=== PATIENT | female | born 1955 | race Caucasian/White ===

== ENCOUNTER 2018-02-11 16:13 | Inpatient (IN) ==
[2018-02-11] MEDS ORDERED: SODIUM POLYSTYRENE SULFATE 15 GM/60 ML BOTTLE PO ONE (18:00)
[2018-02-11] MEDS: INSULIN REGULAR IV SCH (18:31)
[2018-02-11] MEDS: DEXTROSE IV SCH (18:31)
[2018-02-11] MEDS: SODIUM BICARB IV SCH (18:31)
[2018-02-11] MEDS: [UNRECOGNIZED DRUG - OTHER] IV SCH (18:31)
[2018-02-11] MEDS ORDERED: PROCHLORPERAZINE 10 MG TABLET PO PRN (19:28)
[2018-02-11] MEDS: DOCUSATE SODIUM 100 MG CAPSULE PO SCH (21:20)
[2018-02-11] MEDS: PANTOPRAZOLE 40 MG TABLET PO SCH (21:21)
[2018-02-11] MEDS ORDERED: SODIUM CHLORIDE 0.9% 1,000 ML IV ONE (21:30)
[2018-02-11] MEDS ORDERED: ONDANSETRON 4 MG/2 ML VIAL IV PRN (22:59)
[2018-02-11] MEDS ORDERED: guaiFENesin 200 MG/10 ML UDCUP PO PRN (22:59)
[2018-02-11] MEDS ORDERED: BENZTROPINE 2 MG/2 ML AMP IV PRN (22:59)
[2018-02-11] MEDS ORDERED: traMADol 50 MG TABLET PO PRN (22:59)
[2018-02-11] MEDS ORDERED: diphenhydrAMINE CAP 25 MG CAPSULE PO PRN (22:59)
[2018-02-11] MEDS ORDERED: TEMAZEPAM 7.5 MG CAPSULE PO PRN (22:59)
[2018-02-11] MEDS ORDERED: chlorproMAZINE 25 MG TABLET PO PRN (22:59)
[2018-02-11] MEDS ORDERED: ACETAMINOPHEN 325 MG TABLET PO PRN (22:59)
[2018-02-11] MEDS ORDERED: MYLANTA/LIDO VISC 2:1 300 ML BOTTLE SWISH/SWAL PRN (22:59)
[2018-02-11] MEDS ORDERED: LACTULOSE 20 GM/30 ML UDCUP PO PRN (22:59)
[2018-02-11] MEDS ORDERED: MYLANTA/LIDO VISC 2:1 300 ML BOTTLE SWISH/SPIT PRN (22:59)
[2018-02-11] MEDS ORDERED: ALUMINUM/MAGNES/SIMETH MAX STR 30 ML UDCUP PO PRN (22:59)
[2018-02-11] MEDS ORDERED: ALPRAZolam 0.25 MG TABLET PO PRN (22:59)
[2018-02-11] MEDS ORDERED: chlorproMAZINE INJ 50 MG in SODIUM CHLORIDE 0.9% 100 ML IV PRN (22:59)
[2018-02-11] MEDS ORDERED: PROMETHAZINE INJ 25 MG in SODIUM CHLORIDE 0.9% 50 ML IV PRN (22:59)
[2018-02-11] MEDS ORDERED: LOPERAMIDE 2 MG CAPSULE PO PRN ×2 (22:59)
[2018-02-11] MEDS ORDERED: chlorproMAZINE INJ 25 MG in SODIUM CHLORIDE 0.9% 100 ML IV PRN (22:59)
[2018-02-11] MEDS ORDERED: MAGNESIUM HYDROXIDE SUSP 30 ML UDCUP PO PRN (22:59)
[2018-02-12] MEDS: DEXTROSE IV SCH ×2 (01:01→01:02)
[2018-02-12] MEDS: [UNRECOGNIZED DRUG - OTHER] IV SCH ×2 (01:01→01:02)
[2018-02-12] MEDS: SODIUM BICARB IV SCH ×2 (01:01→01:02)
[2018-02-12] MEDS: INSULIN REGULAR IV SCH ×2 (01:01→01:02)
[2018-02-12] MEDS: SODIUM CHLORIDE 0.9% 1,000 ML IV SCH ×2 (03:06→20:41)
[2018-02-12 05:32] LABS: Basophils # 0.1 10*3/uL (0.0-0.2); Basophils % 0.4 % (0.0-0.8); Eosinophils # 0.6 10*3/uL (0.0-0.87); Eosinophils % 3.4 % (0.00-10.9); Hematocrit 27.1 VOL% (35.7-47.0); Hemoglobin 8.4 GM/DL (12.0-16.0); Immature Granulocytes % 6.3 %; Immature Granulocytes Absolute 1.06 #; Lymphocytes # 1.3 10*3/uL (1.4-4.0); Lymphocytes % 7.7 % (21.3-54.2); Mean Corpuscular Hemoglobin 29 PG (27-34); Mean Corpuscular Volume 94.4 FL (87-102); Mean Platelet Volume 10.6 FL (9.6-12.0); Monocytes # 1.7 10*3/uL (0.11-0.8); Monocytes % 9.9 % (1.7-12.7); Neutrophils # 12.1 10*3/uL (1.4-7.4); Neutrophils % 72.3 % (38.7-73.9); Platelet Count 411 T/CUMM (130-400); Red Blood Count 2.87 MC/CUMM (3.8-5.5); Red Cell Distribution Width 19.5 % (9.3-17.3); White Blood Count 16.7 T/CUMM (4-12)
[2018-02-12 06:01] LABS: Band Neutrophils 2 % (0-10); Eosinophils 5 % (0-10); Hypochromasia 1+; Lymphocytes 4 % (20-55); Metamyelocytes 2 %; Microcytosis 1+; Segmented Neutrophils 82 % (50-85); Total Cells Counted 100
[2018-02-12 06:02] LABS: Platelet Estimate Increased
[2018-02-12 06:10] LABS: Albumin 1.8 G/DL (3.4-5.0); Bilirubin,Total 0.6 MG/DL (0.2-1.0); Calcium 7.9 MG/DL (8.5-10.1); Potassium 5.5 MMOL/L (3.5-5.1); Total Protein 5.2 G/DL (6.4-8.3)
[2018-02-12] MEDS: LEVOTHYROXINE 50 MCG TABLET PO SCH (06:17)
[2018-02-12] MEDS: DOCUSATE SODIUM 100 MG CAPSULE PO SCH ×2 (10:25→20:41)
[2018-02-12] MEDS: MULTIVITAMIN (CENTRUM) TABLET PO SCH (10:25)
[2018-02-12] MEDS: PANTOPRAZOLE 40 MG TABLET PO SCH ×2 (10:25→20:41)
[2018-02-12 19:47] LABS: Apearance,Urine CLOUDY (Clear); Bacteria,Urine Many /HPF (Few); Bilirubin,Urine Negative (Negative); Blood, Urine Small mg/dL (Negative); Glucose,Urine (UA) Negative (Negative); Ketones,Urine 5 mg/dL (Negative); Nitrite,Urine Negative (Negative); Protein,Urine 30 MG/DL; RBC,Urine 17 /HPF (0-4); Squamous Epithelial Cell,Urine Occasional /HPF (0-10); Urine Color Yellow (Yellow); Urine Specific Gravity 1.011 (1.001-1.035); Urine Urobilinogen < 2.0 EU/DL (0.2-1.0); WBC,Urine 339 /HPF (0-6)
[2018-02-12] MEDS ORDERED: ENOXAPARIN 60 MG/0.6 ML SYRINGE SUBCUT SCH (21:00)
[2018-02-13 04:33] LABS: Basophils # 0.2 10*3/uL (0.0-0.2); Basophils % 0.7 % (0.0-0.8); Eosinophils # 0.6 10*3/uL (0.0-0.87); Hemoglobin 9.5 GM/DL (12.0-16.0); Immature Granulocytes % 5.7 %; Lymphocytes # 1.4 10*3/uL (1.4-4.0); Lymphocytes % 6.8 % (21.3-54.2); Mean Corpuscular HGB Conc 30.6 GM/DL (32-36); Mean Corpuscular Hemoglobin 29 PG (27-34); Mean Corpuscular Volume 95.7 FL (87-102); Mean Platelet Volume 10.1 FL (9.6-12.0); Monocytes # 2.1 10*3/uL (0.11-0.8); Monocytes % 9.8 % (1.7-12.7); Neutrophils # 15.5 10*3/uL (1.4-7.4); Platelet Count 502 T/CUMM (130-400); Red Blood Count 3.24 MC/CUMM (3.8-5.5)
[2018-02-13 05:00] LABS: Band Neutrophils 4 % (0-10); Eosinophils 5 % (0-10); Hypochromasia 1+; Lymphocytes 6 % (20-55); Nucleated Red Blood Cells 1 (0-5); Ovalocytes Slight; Platelet Estimate Increased; Segmented Neutrophils 76 % (50-85); Total Cells Counted 100
[2018-02-13 05:01] LABS: Microcytosis 1+
[2018-02-13 05:02] LABS: Calcium 8.2 MG/DL (8.5-10.1); Osmolality,Calculated 285.7 MOS/KG (273-304)
[2018-02-13 05:18] LABS: Potassium 6.2 MMOL/L (3.5-5.1)
[2018-02-13] MEDS ORDERED: INSULIN REGULAR IV SCH (06:00)
[2018-02-13] MEDS ORDERED: SODIUM BICARB IV SCH (06:00)
[2018-02-13] MEDS ORDERED: [UNRECOGNIZED DRUG - OTHER] IV SCH (06:00)
[2018-02-13] MEDS ORDERED: DEXTROSE IV SCH (06:00)
[2018-02-13] MEDS ORDERED: LEVOFLOXACIN 500 MG TABLET PO ONE (06:30)
[2018-02-13] MEDS: LEVOTHYROXINE 50 MCG TABLET PO SCH (06:34)
[2018-02-13] MEDS: SODIUM CHLORIDE 0.9% 1,000 ML IV SCH (06:35)
[2018-02-13 07:29] VITALS: BP 147/77
[2018-02-13] MEDS: MULTIVITAMIN (CENTRUM) TABLET PO SCH (08:23)
[2018-02-13] MEDS: DOCUSATE SODIUM 100 MG CAPSULE PO SCH (08:23)
[2018-02-13] MEDS: PANTOPRAZOLE 40 MG TABLET PO SCH (08:23)
[2018-02-14] MEDS ORDERED: LEVOFLOXACIN 250 MG TABLET PO SCH (09:00)
== END 2018-02-13 11:45 | disposition hospice, home (50) | DRG 683 ==
LOC: N.4E 16:30
PROVIDERS: ADMIT Specialist; ATTEND Specialist